=== PATIENT | female | born 1995 | race African-American/Black ===

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

== ENCOUNTER 2017-10-22 10:13 | Emergency (ER) | payer OTHER ==
[~2017-10-22] VITALS: Ht 162.6 cm; Wt 63.0 kg
[~2017-10-22 10:13] MED LIST changes: +NAPROSYN500 MG PO; +ROBAXIN 750 MG750 M1 PO
[2017-10-22] MEDS ORDERED: AMOXICILLIN500 M1 PO (10:53)
[2017-10-22] MEDS ORDERED: IBUPROFEN 600600 M1 PO (10:53)
[2017-10-22 11:29] LABS: HEMATOCRIT 31.2 % (37.0-47.0); HEMOGLOBIN 10.3 gm/dL (12.0-15.0)
[2017-10-22 12:10] VITALS: BP 108/74
== END 2017-10-22 12:11 | disposition home or self-care (01) ==
LOC: ER 10:13
PROVIDERS: Nurse Practitioner
DX: K04.7 Periapical abscess without sinus (principal)

== ENCOUNTER 2019-02-07 20:37 | Emergency (ER) | payer OTHER ==
[~2019-02-07] VITALS: Ht 162.6 cm; Wt 59.0 kg
[~2019-02-07 20:37] MED LIST changes: +AMOXICILLIN500 M1 PO; +IBUPROFEN 600600 M1 PO
[2019-02-07] MEDS ORDERED: NAPROSYN500 MG PO (21:15)
[2019-02-07] MEDS ORDERED: KEFLEX500 M1 PO (21:15)
[2019-02-07 21:59] VITALS: BP 96/54
== END 2019-02-07 22:00 | disposition home or self-care (01) ==
LOC: ER 20:37
DX: N61.0 Mastitis without abscess (principal); Z86.2 Personal history of diseases of the blood and blood-forming organs and certain disorders involving the immune mechanism

== ENCOUNTER 2019-06-18 10:03 | Emergency (ER) | payer OTHER ==
[~2019-06-18] VITALS: Ht 162.6 cm; Wt 63.5 kg
[2019-06-18 10:03] VITALS: BP 97/64
[~2019-06-18 10:03] MED LIST changes: +KEFLEX500 M1 PO
[2019-06-20] MEDS ORDERED: CLINDAMYCIN HC300 MG PO (15:02)
== END 2019-06-18 12:37 | disposition home or self-care (01) ==
LOC: ER 10:03
DX: J02.9 Acute pharyngitis, unspecified (principal); Z86.2 Personal history of diseases of the blood and blood-forming organs and certain disorders involving the immune mechanism

== ENCOUNTER 2019-07-26 15:27 | Emergency (ER) | payer OTHER ==
[~2019-07-26] VITALS: Ht 162.6 cm; Wt 61.2 kg
[~2019-07-26 15:27] MED LIST changes: +CLINDAMYCIN HC300 MG PO
[2019-07-26] MEDS ORDERED: TYLENOL WITH CO1 TA1 PO (16:12)
[2019-07-26 17:17] VITALS: BP 93/53
== END 2019-07-26 17:18 | disposition home or self-care (01) ==
LOC: ER 15:27
DX: F07.81 Postconcussional syndrome (principal); S05.12XA Contusion of eyeball and orbital tissues, left eye, initial encounter; M54.2 Cervicalgia; Y04.0XXA Assault by unarmed brawl or fight, initial encounter; Y93.89 Activity, other specified; Y92.89 Other specified places as the place of occurrence of the external cause; Y99.8 Other external cause status

== ENCOUNTER 2020-02-24 10:34 | Emergency (ER) | payer OTHER ==
[~2020-02-24] VITALS: Ht 162.6 cm; Wt 65.8 kg
[~2020-02-24 10:34] MED LIST changes: +TYLENOL WITH CO1 TA1 PO
[2020-02-24 10:45] VITALS: BP 109/53
== END 2020-02-24 14:05 | disposition left against medical advice (07) ==
LOC: ER 10:34
DX: N64.4 Mastodynia (principal); L53.9 Erythematous condition, unspecified; Z79.899 Other long term (current) drug therapy; Z53.29 Procedure and treatment not carried out because of patient's decision for other reasons

== ENCOUNTER 2021-02-03 12:47 | Emergency (ER) | payer OTHER ==
[~2021-02-03] VITALS: Ht 162.6 cm; Wt 61.7 kg
[2021-02-03 13:02] VITALS: BP 110/71
[2021-02-03] MEDS ORDERED: CEPHALEXIN500 MG PO (14:17)
[2021-02-03] MEDS ORDERED: BACTRIM DS TAB1 EAC1 PO (14:17)
== END 2021-02-03 14:25 | disposition home or self-care (01) ==
LOC: ER 12:47
DX: N61.1 Abscess of the breast and nipple (principal); Z79.891 Long term (current) use of opiate analgesic